=== PATIENT | female | born 1945 | race Caucasian/White ===

== ENCOUNTER 2016-12-01 13:20 | Outpatient (CLI) | payer MEDICARE | END 2016-12-01 13:21 | disposition home or self-care (01) | LOC: HPCALD 13:20 | PROVIDERS: ATTEND Family Medicine | DX: R00.2 Palpitations (principal) | CPT/HCPCS: 36415; 85379 ==

== ENCOUNTER 2016-12-02 12:46 | Outpatient (CLI) | payer MEDICARE ==
--- NOTE | 2016-12-02 22:32 | RAD ---
CHEST TWO VIEWS 12/02/16 Comparison is made with the 07/27/16 study. The heart is normal in size. There is no congestive change or pleural effusion. Some calcified lymph nodes are noted in the mediastinum and there is a calcified granuloma in the right upper lobe. A li near streak is seen in the left lower lobe that was not present before. This could be a strip of ate lectasis. IMPRESSION: Chronic changes as noted. Possible linear atelectasis in the left base. POS: HOME
== END 2016-12-02 12:47 | disposition home or self-care (01) ==
LOC: BURRAD 12:46
PROVIDERS: ATTEND Family Medicine
DX: R00.2 Palpitations (principal)
CPT/HCPCS: 71020

== ENCOUNTER 2016-12-07 09:25 | Outpatient (CLI) | payer MEDICARE | END 2016-12-07 09:26 | disposition home or self-care (01) | LOC: HPCALD 09:25 | PROVIDERS: ATTEND Family Medicine | DX: E78.00 Pure hypercholesterolemia, unspecified (principal) | CPT/HCPCS: 36415; 80061 ==

== ENCOUNTER 2017-03-15 11:19 | Outpatient (CLI) | payer MEDICARE ==
[2017-03-15 12:34] LABS: Cardiac Risk 3.6 (Less than 4.5)
== END 2017-03-15 11:20 | disposition home or self-care (01) ==
LOC: HPCALD 11:19
PROVIDERS: ATTEND Family Medicine
DX: E78.00 Pure hypercholesterolemia, unspecified (principal)
CPT/HCPCS: 36415; 80061

== ENCOUNTER 2017-03-31 10:58 | Outpatient (CLI) | payer MEDICARE | END 2017-03-31 10:59 | disposition home or self-care (01) | LOC: HPCALD 10:58 | PROVIDERS: ATTEND Family Medicine | DX: M89.9 Disorder of bone, unspecified (principal) | CPT/HCPCS: 36415; 82306 ==

== ENCOUNTER 2017-09-23 10:40 | Emergency (ER) | payer MEDICARE | END 2017-09-23 11:16 | disposition home or self-care (01) | LOC: BURERS 10:40 | DX: I80.02 Phlebitis and thrombophlebitis of superficial vessels of left lower extremity (principal); E78.5 Hyperlipidemia, unspecified; F32.9 Major depressive disorder, single episode, unspecified; M81.0 Age-related osteoporosis without current pathological fracture | CPT/HCPCS: 99283 ==

== ENCOUNTER 2018-05-14 10:34 | Emergency (ER) | payer MEDICARE ==
[2018-05-14 10:52] LABS: Bilirubin Negative (Negative); Blood, Urine Moderate (Negative); Clarity Turbid (Clear); Glucose, Urine (Dipstick) Negative (Negative); Leukocyte Large (Negative); Nitrite Positive (Negative); Protein, Urine (Dipstick) 100 mg/dL (Neg-Trace)
[2018-05-14 10:54] LABS: Bacteria/HPF 4+ HPF (None Seen); Squamous Epithelial 0-3 HPF (0-3)
[2018-05-14] MEDS ORDERED: Cephalexin 500 MG CAP ONE (11:03)
== END 2018-05-14 11:05 | disposition home or self-care (01) ==
LOC: BURERS 10:34
DX: N39.0 Urinary tract infection, site not specified (principal); M81.0 Age-related osteoporosis without current pathological fracture; E78.5 Hyperlipidemia, unspecified; F32.9 Major depressive disorder, single episode, unspecified
CPT/HCPCS: 81003; 81015; 99283

== ENCOUNTER 2020-09-30 19:12 | Emergency (ER) | payer MEDICARE ==
--- NOTE | 2020-09-30 20:47 | CT ---
CT OF THE CERVICAL SPINE 09/30/[address] of the cervical spine was done for evaluation following trauma. There is some mild straightening of the cervical spine which may be due to muscle spasm. No fracture or dislocation was seen. The C1 to dens distance is normal and the soft tissues are normal in thickne ss. Mild disc space narrowing is present at C4-C5 and to a greater extent C6-C7. Mild degenerative ch anges are present throughout without any signs of central canal stenosis. IMPRESSION: Minimal straightening of the cervical spine, otherwise no acute findings. Preliminary report called to Dr. Houston at 2026 on 09/30/20. POS: HOME
--- NOTE | 2020-09-30 20:49 | CT ---
CT OF THE BRAIN WITHOUT CONTRAST 09/30/20 The ventricles are normal in size for age and atrophy. There is no ventricular shift. No intracranial bleeding or extra-axial hematoma was seen. There is some mild deep white matter lucency typical of c hronic ischemic change. No acute stroke, mass or edema was seen. The skull appears intact and the vis ible paranasal sinuses and mastoid air cells are clear. IMPRESSION: No acute intracranial findings. Preliminary report called to Dr. Houston at 2026 on 09/30/20. POS: HOME
[2020-09-30] MEDS ORDERED: Lidocaine 1% w/Epinephrine 1:100K 20 ML VIAL ONE (21:08)
== END 2020-09-30 21:30 | disposition home or self-care (01) ==
LOC: BURERS 19:12
DX: S01.81XA Laceration without foreign body of other part of head, initial encounter (principal); E78.5 Hyperlipidemia, unspecified; E78.00 Pure hypercholesterolemia, unspecified; W01.0XXA Fall on same level from slipping, tripping and stumbling without subsequent striking against object, initial encounter
CPT/HCPCS: 12013; 70450; 72125